=== PATIENT | male | born 2000 | race Caucasian/White ===

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

== ENCOUNTER 2022-10-30 11:38 | Emergency (ER) | payer MEDICAID ==
[~2022-10-30] VITALS: Ht 188 cm; Wt 75.8 kg
[2022-10-30] MEDS ORDERED: LIDOCAINE 1% HCL (LOCAL ANESTH.) INJ 20ML MDV ID ONE (14:15)
[2022-10-30] MEDS ORDERED: TETANUS-DIPTH-ACEL PERTUSSIS 0.5ML SYR Tdap IM ONE (14:15)
[2022-10-30] MEDS ORDERED: CEPH-510 PO (15:38)
[2022-10-30 15:49] VITALS: BP 116/68
== END 2022-10-30 15:49 | disposition home or self-care (01) ==
LOC: ER 11:38
DX: S01.511A Laceration without foreign body of lip, initial encounter (principal); W21.05XA Struck by basketball, initial encounter; Y93.89 Activity, other specified; Y92.89 Other specified places as the place of occurrence of the external cause; Y99.8 Other external cause status
CPT/HCPCS: 12011; 90471; 90715; 99283; J2001